=== PATIENT | male | born 1985 | race Caucasian/White ===

== ENCOUNTER 2021-06-07 07:13 | Emergency (ER) | payer MEDICARE, OTHER ==
[~2021-06-07 07:13] MED LIST: AMOXICILLIN500 MG PO
[2021-06-07 07:55] LABS: HEMOGLOBIN 17.5 gm/dl (14.0-17.5); RED BLOOD COUNT 5.69 M/UL (4.20-5.50); WHITE BLOOD COUNT 19.9 K/UL (4.5-11.0)
[2021-06-07 08:18] LABS: BUN/CREATININE RATIO 15 (0-10)
== END 2021-06-07 11:30 ==
LOC: ER1 07:13
PROVIDERS: Physician Assistant
DX: N13.6 Pyonephrosis (principal); F17.210 Nicotine dependence, cigarettes, uncomplicated; Z20.822 Contact with and (suspected) exposure to COVID-19
CPT/HCPCS: 80053; 81001; 83690; 85025; 96374; 96375; 99284; J0696; J1885; J2270; J2405; J7030; U0002

== ENCOUNTER 2021-07-08 11:30 | Emergency (ER) | payer MEDICARE, OTHER | END 2021-07-08 12:17 | disposition left against medical advice (07) | LOC: ER1 11:30 | DX: Z53.21 Procedure and treatment not carried out due to patient leaving prior to being seen by health care provider (principal) ==

== ENCOUNTER 2021-07-20 13:26 | Emergency (ER) | payer MEDICARE, OTHER ==
[2021-07-20 14:11] LABS: HEMOGLOBIN 14.8 gm/dl (14.0-17.5); RED BLOOD COUNT 4.89 M/UL (4.20-5.50); WHITE BLOOD COUNT 15.9 K/UL (4.5-11.0)
[2021-07-20 14:29] LABS: BUN/CREATININE RATIO 10 (0-10)
== END 2021-07-20 17:00 | disposition short-term general hospital (02) ==
LOC: ER1 13:26
PROVIDERS: Nurse Practitioner
DX: N13.5 Crossing vessel and stricture of ureter without hydronephrosis (principal); G89.29 Other chronic pain; F17.210 Nicotine dependence, cigarettes, uncomplicated
CPT/HCPCS: 80053; 81001; 83605; 85025; 85610; 87040; 87086; 96374; 96375; 99284; J1170; J2270; J2405; J7030

== ENCOUNTER → 2021-08-20 | Outpatient (CLI) | payer MEDICARE, OTHER, MEDICAID ==
[~2021-08-20] MED LIST changes: +OMNICEF 300 MG300 MG PO
== END ==
LOC: LAB 12:12
DX: N39.0 Urinary tract infection, site not specified (principal)
CPT/HCPCS: 87077; 87086; 87186

== ENCOUNTER 2021-08-21 12:36 | Emergency (ER) | payer OTHER ==
[~2021-08-21] VITALS: Ht 167.6 cm; Wt 93.0 kg
[~2021-08-21 12:36] MED LIST changes: -OMNICEF 300 MG300 MG PO
[2021-08-21 14:18] LABS: HEMOGLOBIN 16.6 gm/dl (14.0-17.5); RED BLOOD COUNT 5.52 M/UL (4.20-5.50); WHITE BLOOD COUNT 17.5 K/UL (4.5-11.0)
[2021-08-21 14:37] LABS: BUN/CREATININE RATIO 11 (0-10)
[2021-08-21] MEDS ORDERED: OMNICEF 300 MG300 MG PO (15:53)
== END 2021-08-21 16:37 | disposition home or self-care (01) ==
LOC: ER1 12:36
PROVIDERS: Emergency Medicine
DX: N12 Tubulo-interstitial nephritis, not specified as acute or chronic (principal)
CPT/HCPCS: 80053; 81001; 83605; 85025; 87040; 87086; 96374; 96375; 99284; J0696; J2185; J2270; J2405; J2550; J3370; J7030; J7070

== ENCOUNTER 2022-05-13 21:34 | Emergency (ER) | payer MEDICARE, OTHER ==
[~2022-05-13 21:34] MED LIST changes: +OMNICEF 300 MG300 MG PO
[2022-05-13 22:31] LABS: HEMOGLOBIN 15.3 gm/dl (14.0-17.5); RED BLOOD COUNT 5.09 M/UL (4.20-5.50); WHITE BLOOD COUNT 9.5 K/UL (4.5-11.0)
[2022-05-13 22:51] LABS: BUN/CREATININE RATIO 8 (0-10)
== END 2022-05-14 01:29 | disposition left against medical advice (07) ==
LOC: ER1 21:34
PROVIDERS: Physician Assistant Medical
DX: M54.9 Dorsalgia, unspecified (principal); R11.2 Nausea with vomiting, unspecified; F17.210 Nicotine dependence, cigarettes, uncomplicated; R40.2410 Glasgow coma scale score 13-15, unspecified time
CPT/HCPCS: 80053; 83605; 83690; 85025; 99283